=== PATIENT | female | born 1950 | race Caucasian/White ===

== ENCOUNTER 2016-09-26 13:39 | Emergency (ER) | payer MEDICARE, MEDICAID ==
[~2016-09-26] VITALS: Ht 157.5 cm; Wt 59.0 kg
[~2016-09-26 13:39] MED LIST: ACCUPRIL5 MG ORAL; ASPIRIN81 MG ORAL; COUMADIN5 MG ORAL; DIABETA5 MG ORAL; JANUVIA25 MG ORAL
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
--- NOTE | 2016-09-26 14:23 | Diagnostic Imaging Report ---
Indication: PAIN Technique: 3 views right hand Comparison: none Findings: No acute fractures. No dislocations. There is degenerative joint space narrowing of the second through fifth proximal and distal interphalangeal joints, to a slight extent the first interphalangeal joint. Bones are osteoporotic. Impression: No acute bony trauma Degenerative changes as described
[2016-09-26 14:57] VITALS: BP 116/80
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
[2016-09-26] MEDS ORDERED: TYLENOL EXTRA500 MG ORAL (16:37)
[2016-09-26] MEDS ORDERED: BACITRACIN-P28.35 GM TP (16:37)
[2016-09-26] MEDS ORDERED: Bacitracin Oint UD TOPIC ONE (16:45)
[2016-09-26 17:41] VITALS: BP 122/85
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
--- NOTE | 2016-09-27 08:37 | Diagnostic Imaging Report ---
Indication: PAIN Technique: Spiral acquisitions obtained through the cervical spine. No IV contrast utilized. Multiplanar reconstructions were generated. Total dose length product 230 mGycm. CTDIvol(s) 11 mGy. Dose reduction achieved using automated exposure control Comparison: None Findings: Bony alignment is normal. Prevertebral soft tissue swelling. No acute fractures. No dislocations. At C2-3, there is mild degenerative disc narrowing. No significant disc bulge or protrusion, spinal stenosis, or neural frontal stenosis. Starting at about the C3 and extending to meds C5, there is thickening of the posterior longitudinal ligament. Less striking posterior longitudinal ligament thickening is seen inferior to this. This results in borderline stenosis of the spinal canal, more striking at C4-5, and slight impingement on the anterior aspect of the cord. At C3-4 there is mild degenerative disc narrowing., there is broad-based central posterior disc protrusion which is contiguous with the posterior longitudinal ligament thickening, results in borderline narrowing of the spinal canal, slight impingement on the anterior aspect of the cord. The neural foramina are preserved. There is facet degeneration on the left At C4-5, there is moderate degenerative disc narrowing. There is moderate narrowing of the right neural foramen. The thickening of the posterior longitudinal ligament is exacerbated slightly by broad-based posterior disc protrusion, and the spinal canal is to 10 mm at this level. There is anterior proliferative change At C5-6, there is mild to moderate degenerative disc narrowing, considerable anterior proliferative change. No significant disc bulge or protrusion, spinal stenosis. There is borderline narrowing of the right neural foramen. At C6-7, there is broad-based posterior central disc protrusion which does not significantly narrow the spinal canal. As the neural foramina are preserved. There are large anterior osteophytes. There is mild narrowing of the disc At C7-T1, there is mild to moderate narrowing of the disc. No significant disc bulge or protrusion, spinal stenosis, or neural foraminal stenosis. Calcifications and possibly one or more small nodules are seen within the thyroid. There is questionably a hypodense nodule measuring approximately 10 mm diameter in the right lobe. Impression: No acute bony trauma Degenerative changes, as detailed on a level by level basis above The CT scanner at [facility] is accredited by the [employer] and the scans are performed using protocols designed to limit radiation exposure to as low as reasonably achievable to attain images of sufficient resolution adequate for diagnostic evaluation.
--- NOTE | 2016-09-28 19:11 | Cardiology Report ---
APPROVED REPORT EKG Measurement Heart [id number] Normal sinus rhythm Cannot rule out Anterior infarct, age undetermined Abnormal ECG
== END 2016-09-26 17:46 | disposition home or self-care (01) ==
LOC: EDBD 13:39 → EMR 14:20
DX: S00.81XA Abrasion of other part of head, initial encounter (principal); S60.221A Contusion of right hand, initial encounter; S10.91XA Abrasion of unspecified part of neck, initial encounter; V43.62XA Car passenger injured in collision with other type car in traffic accident, initial encounter; Y93.9 Activity, unspecified; Y92.410 Unspecified street and highway as the place of occurrence of the external cause; Z85.830 Personal history of malignant neoplasm of bone; I12.0 Hypertensive chronic kidney disease with stage 5 chronic kidney disease or end stage renal disease; E11.22 Type 2 diabetes mellitus with diabetic chronic kidney disease; N18.6 End stage renal disease; Z99.2 Dependence on renal dialysis; J98.11 Atelectasis; M47.9 Spondylosis, unspecified; M81.0 Age-related osteoporosis without current pathological fracture
CPT/HCPCS: 70450; 70486; 71250; 72125; 93005; 99284